=== PATIENT | female | born 1930 | race Caucasian/White ===

== ENCOUNTER 2017-12-10 11:39 | Emergency (ER) | payer MEDICARE ==
[~2017-12-10] VITALS: Ht 157.5 cm; Wt 68.0 kg
[2017-12-10] VITALS (7 sets, daily range): BP systolic 151–164; BP diastolic 66–73; PULSE 51–54; RESP 15–17; TEMP 98.4; O2SAT 87–100
[2017-12-10] MEDS ORDERED: STATIN (11:55)
[2017-12-10] MEDS ORDERED: ZOLP1SUB2 SL (11:55)
[2017-12-10] MEDS ORDERED: LEVO25TA4 PO (11:55)
[2017-12-10] MEDS ORDERED: MECL12.574 PO (11:55)
--- NOTE | 2017-12-10 11:56 | PD ---
HPI Chief Complaint: Injury Time Seen by Provider: 11:51 Travel History International Travel<30 days: No Contact w/Intl Traveler<30days: No Traveled to known affect area: No History of Present Illness HPI 87-year-old [id number] female with PMH of HTN presents to the ED via EMS for evaluation of right arm pain after trip and fall. Patient states that she fell on her outstretched hand, landing on the tile. She denies hitting her head or loss of consciousness. She endorses 10/10 pain, worse with any attempted ROM. Denies numbness or tingling of the extremity. She endorses distant history of fracture of the same arm in childhood. States her tetanus immunization is up-to-date. She takes a daily baby aspirin. She had a full breakfast around 8 AM today. Patient received 100 of fentanyl and 8 mg of morphine by EMS before arrival to the hospital. PFSH Past Medical History Anxiety: Yes Depression: Yes High Cholesterol: Yes Hypertension: Yes Thyroid Disease: Yes Tetanus Vaccination: < 5 Years Influenza Vaccination: Yes ?: Not Past Surgical History Hysterectomy: Yes Social History Alcohol Use: Yes (RARELY ) Tobacco Use: No Substance Use: No Allergies-Medications (Allergen,Severity, Reaction): Coded Allergies: penicillin G (Verified Allergy, Unknown, 12/10/17) Reported Meds & Prescriptions Reported Meds & Active Scripts Active Ibuprofen 600 Mg Tab 600 Mg PO Q6H PRN [place] (Hydrocodone-Acetaminophen) 5 Mg-325 Mg Tab 1 Tab PO Q6H PRN Reported Zolpidem (Zolpidem Tartrate) 1.75 Mg Sub 1.75 Mg SL HS PRN Meclizine (Meclizine HCl) 12.5 Mg Tab 12.5 Mg PO DIRECTED PRN Levothyroxine (Levothyroxine Sodium) 25 Mcg Tab 25 Mcg PO DAILY [Statin] Review of Systems Except as stated in HPI: all other systems reviewed are Neg Physical Exam Narrative GENERAL: Well-nourished, well-developed elderly white female no acute distress. SKIN: Focused skin assessment warm/dry. 1-2 cm laceration in the posterior aspect of the right elbow. HEAD: Normocephalic. EYES: No scleral icterus. No injection or drainage. NECK: Supple, trachea midline. No JVD or lymphadenopathy. CARDIOVASCULAR: Regular rate and rhythm without murmurs, gallops, or rubs. RESPIRATORY: Breath sounds equal bilaterally. No accessory muscle use. GASTROINTESTINAL: Abdomen soft, non-tender, nondistended. MUSCULOSKELETAL: No cyanosis, or edema. FOCUSED RIGHT UPPER EXTREMITY EXAM: 2+ radial pulse. Sensation intact to light touch distally. Visible deformity at the distal humerus and proximal radius and ulna. Exam limited secondary to pain. BACK: Nontender without obvious deformity. No CVA tenderness. Data Data Last Documented VS Vital Signs Date Time Temp Pulse Resp B/P (MAP) Pulse Ox O2 Delivery O2 Flow Rate FiO2 12/10/17 14:16 51 15 163/70 (101) 100 Nasal Cannula 2.00 12/10/17 14:01 100 12/10/17 11:46 98.4 Orders Orders Forearm (2vws) (12/10/17 11:51) Humerus (Min 2vws) (12/10/17 11:51) Electrocardiogram (12/10/17 11:51) Complete Blood Count With Diff (12/10/17 11:51) Comprehensive Metabolic Panel (12/10/17 11:51) Prothrombin Time / Inr (Pt) (12/10/17 11:51) Act Partial Throm Time (Ptt) (12/10/17 11:51) Urinalysis - C+S If Indicated (12/10/17 11:51) Type And Screen (12/10/17 11:51) Chest, Single Ap (12/10/17 11:51) Iv Access Insert/Monitor (12/10/17 11:51) Oximetry (12/10/17 11:51) Ecg Monitoring (12/10/17 11:51) Sodium Chloride 0.9% Flush (Ns Flush) (12/10/17 12:00) Ondansetron Odt (Zofran Odt) (12/10/17 12:00) Diet Npo (12/10/17 Lunch) Cefazolin 2 Gm Premix (Ancef 2 Gm Premix (12/10/17 12:00) Sodium Chlor 0.9% 1000 Ml Inj (Ns 1000 M (12/10/17 12:00) Hydromorphone Pf Inj (Dilaudid Pf Inj) (12/10/17 13:15) Hydromorphone Pf Inj (Dilaudid Pf Inj) (12/10/17 13:10) Etomidate Inj (Amidate Inj) (12/10/17 13:15) Naloxone Inj (Narcan Inj) (12/10/17 13:49) Naloxone Inj (Narcan Inj) (12/10/17 13:50) Metoclopramide Inj (Reglan Inj) (12/10/17 14:15) Elbow, Limited (Ap&Lat) (12/10/17 14:15) Fiberglass Splint Elbow Adult (12/10/17 ) Sling Cradle Arm (12/10/17 ) Urine Culture (12/10/17 14:10) Acetamin-Hydrocod 325-5 Mg ([place] 5-325 (12/10/17 16:15) Ed Discharge Order (12/10/17 16:06) Labs Laboratory Tests Test 12/10/17 11:50 12/10/17 14:10 White Blood Count 8.3 TH/MM3 Red Blood Count 5.02 MIL/MM3 Hemoglobin 13.5 GM/DL Hematocrit 40.3 % Mean Corpuscular Volume 80.4 FL Mean Corpuscular Hemoglobin 27.0 PG Mean Corpuscular Hemoglobin Concent 33.5 % Red Cell Distribution Width 12.8 % Platelet Count 207 TH/MM3 Mean Platelet Volume 8.7 FL Neutrophils (%) (Auto) 72.7 % Lymphocytes (%) (Auto) 19.2 % Monocytes (%) (Auto) 6.8 % Eosinophils (%) (Auto) 1.1 % Basophils (%) (Auto) 0.2 % Neutrophils # (Auto) 6.0 TH/MM3 Lymphocytes # (Auto) 1.6 TH/MM3 Monocytes # (Auto) 0.6 TH/MM3 Eosinophils # (Auto) 0.1 TH/MM3 Basophils # (Auto) 0.0 TH/MM3 CBC Comment DIFF FINAL Differential Comment Prothrombin Time 11.0 SEC Prothromb Time International Ratio 1.1 RATIO Activated Partial Thromboplast Time 25.0 SEC Blood Urea Nitrogen 17 MG/DL Creatinine 0.68 MG/DL Random Glucose 97 MG/DL Total Protein 6.7 GM/DL Albumin 3.8 GM/DL Calcium Level 9.2 MG/DL Alkaline Phosphatase 58 U/L Aspartate Amino Transf (AST/SGOT) 26 U/L Alanine Aminotransferase (ALT/SGPT) 25 U/L Total Bilirubin 0.6 MG/DL Sodium Level 141 MEQ/L Potassium Level 3.6 MEQ/L Chloride Level 106 MEQ/L Carbon Dioxide Level 26.8 MEQ/L Anion Gap 8 MEQ/L Estimat Glomerular Filtration Rate 82 ML/MIN Urine Color YELLOW Urine Turbidity CLEAR Urine pH 7.0 Urine Specific [place] 1.009 Urine Protein NEG mg/dL Urine Glucose (UA) NEG mg/dL Urine Ketones NEG mg/dL Urine Occult Blood NEG Urine Nitrite NEG Urine Bilirubin NEG Urine Urobilinogen LESS THAN 2.0 MG/DL Urine Leukocyte Esterase NEG Urine WBC LESS THAN 1 /hpf Urine Bacteria RARE /hpf Microscopic Urinalysis Comment CATH-CULTURE IND MDM Medical Decision Making Medical Screen Exam Complete: Yes Emergency Medical Condition: Yes Differential Diagnosis Fracture versus dislocation versus open fracture versus other Narrative Course 87-year-old female presents the ED for evaluation of right arm pain after trip and fall. Patient denies hitting her head or loss of consciousness. Patient received 100 of fentanyl and 8 mg of morphine by EMS before arrival to the hospital. Vitals reviewed. On exam patient is alert, oriented. There is visible deformity of the right elbow with palpable distal pulses and sensation intact distally. 2 subcentimeter lacerations noted on the medial aspect of the elbow. Laceration repair was performed. Please see my procedure note for details. IV was established. Patient was administered 1 L normal saline. X- rays reveal dislocation. Reduction was performed under conscious sedation. Please see my procedure note for details. Post reduction x-rays reveal near anatomical position. There is a possible radial head fracture that is nondisplaced. I spoke with Dr. Lassiter. He states that the patient can follow- up with him on the outpatient basis. Patient is provided a short course of [place] and ibuprofen, given detailed follow-up instructions. A neighbor at bedside states that she will be able to stay with the patient until her son arrives. Patient is cautioned not to take Ambien while taking narcotic pain medications. The patient and her friend indicated understanding the instructions are agreeable to care plan. The patient is stable and discharged home. Procedures Procedure Narrative LACERATION LOCATION: Medial aspect right elbow LENGTH: 0.75 cm 2 NUMBER OF STITCHES/SIOMARA: 2 REPAIR: The wound was copiously irrigated with 1 L normal saline and explored without evidence of foreign body, tendon injury or neurovascular injury. The wound was closed using surgical siomara. This was a single layer repair. A sterile dressing was applied. The patient was advised to keep the dressing clean and dry. Patient tolerated the procedure well. CLOSED REDUCTION RIGHT ELBOW: Conscious sedation was administered by Dr. Crabtree, please see her note for details. Adequate anesthesia was obtained. Axial traction was applied to the forearm with distraction proximally. Palpable clunks were heard and felt as the elbow returned to better anatomical position. ROM was carefully tested and normal. Palpable radial pulse. Posterior splint was applied by the orthotic assistant's. Upon waking the patient is able to wiggle her fingers, endorses intact sensation in the distal fingers. Cap refill less than 2 seconds. Diagnosis Primary Impression: Dislocation of elbow, right, open Qualified Codes: S53.104A - Unspecified dislocation of right ulnohumeral joint , initial encounter; S51.001A - Unspecified open wound of right elbow, initial encounter Additional Impression: Laceration Referrals: Sigifredo Lassiter MD Additional Instructions: Rest, ice, elevate the extremity. Apply ice no longer than 10-15 minutes per hour a few times a day. [place] as needed for pain greater than 6. 600 mg ibuprofen as needed for pain [address] while taking narcotic pain medications as they may cause drowsiness. Do not take Ambien while taking narcotic pain medications as they may decrease respiratory drive. Do not remove the splint for any reason. Call Dr. Lassiter, orthopedist office tomorrow for follow up appointment. Return to the ED for any urgent or emergent medical condition. Med/Other Pt SpecificInfo: Prescription(s) given Scripts Ibuprofen (Ibuprofen) 600 Mg Tab 600 MG PO Q6H Y for Pain/Inflammation, #15 TAB 0 Refills Prov: Nomi Gooden MD 12/10/17 Hydrocodone-Acetaminophen ([place]) 5 Mg-325 Mg Tab 1 TAB PO Q6H Y for PAIN, #12 TAB 0 Refills Prov: Nomi Gooden MD 12/10/17 Disposition: 01 DISCHARGE HOME Condition: Stable Anna Hernandez December 10, 2017 11:56
[2017-12-10] MEDS ORDERED: ceFAZolin 2 GM PREMIX 50 ML IV ONE (12:00)
[2017-12-10] MEDS ORDERED: ONDANSETRON ODT 4 MG TAB PO ONE (12:00)
[2017-12-10] MEDS ORDERED: SODIUM CHLORIDE 0.9% FLUSH 10 ML FLUSH IVF PRN (12:00)
[2017-12-10] MEDS: SODIUM CHLOR 0.9% 1000 ML INJ 1,000 ML IV SCH ×2 (12:10→14:08)
[2017-12-10 12:19] LABS: BASOPHIL % 0.2 % (0.0-2.0); EOSINOPHIL # 0.1 TH/MM3 (0-0.4); EOSINOPHIL % 1.1 % (0.0-4.0); HEMATOCRIT 40.3 % (35.0-46.0); HEMOGLOBIN 13.5 GM/DL (11.6-15.3); LYMPH % 19.2 % (9.0-44.0); LYMPHOCYTE # 1.6 TH/MM3 (1.0-4.8); MEAN CELL VOLUME 80.4 FL (80.0-100.0); MEAN CORPUSCULAR HGB CONC 33.5 % (32.0-36.0); MEAN PLATELET VOLUME 8.7 FL (7.0-11.0); MONO % 6.8 % (0.0-8.0); MONOCYTE # 0.6 TH/MM3 (0-0.9); NEUT % 72.7 % (16.0-70.0); PLATELET COUNT 207 TH/MM3 (150-450); RED BLOOD COUNT 5.02 MIL/MM3 (4.00-5.30); RED CELL DISTRIBUTION WIDTH 12.8 % (11.6-17.2); WHITE BLOOD COUNT 8.3 TH/MM3 (4.0-11.0)
[2017-12-10 12:27] LABS: INTERNATIONAL NORMALIZED RATIO 1.1 RATIO
[2017-12-10 12:46] LABS: ALBUMIN 3.8 GM/DL (3.4-5.0); ALT (GPT) 25 U/L (10-53); AST (GOT) 26 U/L (15-37); BICARBONATE 26.8 MEQ/L (21.0-32.0); BLOOD UREA NITROGEN 17 MG/DL (7-18); CALCIUM 9.2 MG/DL (8.5-10.1); CHLORIDE 106 MEQ/L (98-107); CREATININE 0.68 MG/DL (0.50-1.00); GLOMERULAR FILTRATION RATE 82 ML/MIN (>89); GLUCOSE,RANDOM 97 MG/DL (74-106); SODIUM (NA) 141 MEQ/L (136-145)
[2017-12-10 12:48] LABS: ALKALINE PHOSPHATASE 58 U/L (45-117); TOTAL BILIRUBIN ADULT 0.6 MG/DL (0.2-1.0); TOTAL PROTEIN 6.7 GM/DL (6.4-8.2)
--- NOTE | 2017-12-10 13:06 | RADRPT ---
EXAM DATE: 12/10/2017 1:01 PM EDT AGE/SEX: 87 years / Female INDICATIONS: Patient fell, chest pain CLINICAL DATA: This is the patient's initial encounter. Patient reports that signs and symptoms have been present for 1 day and indicates a pain score of 4/10. MEDICAL/SURGICAL HISTORY: None. None. COMPARISON: No prior [facility] exams available for comparison. FINDINGS: The heart size is mildly enlarged. The lungs are grossly clear. No effusion is seen. There appears to be a compression deformity at the right lateral aspect of L1. The age of this deformity is not known . CONCLUSION: No acute cardiopulmonary process. Electronically signed by: Saran Arias MD 12/10/2017 1:05 PM EDT
[2017-12-10] MEDS ORDERED: HYDROmorphone HCL PF 2 MG/ML VIAL ONE (13:10)
--- NOTE | 2017-12-10 13:10 | RADRPT ---
EXAM DATE: 12/10/2017 1:07 PM EDT AGE/SEX: 87 years / Female INDICATIONS: Right arm pain near elbow post fall. CLINICAL DATA: This is the patient's initial encounter. Patient reports that signs and symptoms have been present for 1 day and indicates a pain score of 10/10. MEDICAL/SURGICAL HISTORY: None. None. COMPARISON: No prior [facility] exams available for comparison. FINDINGS: There appears to be a complete posterior joint dislocation at the elbow. There is osteopenia of the b marlon structures. The mid to distal radius and ulna are intact. There is good alignment at the radial c arpal joint. There are some mild degenerative changes involving the carpal bones. CONCLUSION: Complete posterior joint dislocation at the elbow. Electronically signed by: Tray Starr MD 12/10/2017 1:09 PM EDT
[2017-12-10] MEDS ORDERED: HYDROmorphone HCL PF 1 MG/ML VIAL IV PUSH ONE (13:15)
[2017-12-10] MEDS ORDERED: ETOMIDATE 40 MG/20 ML VIAL IV PUSH ONE (13:15)
--- NOTE | 2017-12-10 13:17 | RADRPT ---
EXAM DATE: 12/10/2017 1:12 PM EDT AGE/SEX: 87 years / Female INDICATIONS: Right arm pain posterior elbow, post fall. CLINICAL DATA: This is the patient's initial encounter. Patient reports that signs and symptoms have been present for 1 day and indicates a pain score of 10/10. MEDICAL/SURGICAL HISTORY: None. None. COMPARISON: No prior [facility] exams available for comparison. FINDINGS: There is a complete posterior joint dislocation at the elbow joint. On one view there is a questionab le lucency along the head of the radius. Otherwise, the rest the bony structures are grossly intact. The humerus appears to be intact. There are some degenerative changes at the shoulder joint. CONCLUSION: 1. Complete posterior dislocation of the elbow 2. Possible linear nondisplaced fracture through the head of the radius seen only on one image. Electronically signed by: Tray Starr MD 12/10/2017 1:16 PM EDT
[2017-12-10] MEDS ORDERED: NALOXONE HCL 0.4 MG/ML AMP ONE ×2 (13:49→13:50)
--- NOTE | 2017-12-10 14:04 | PD ---
Physical Exam Date Seen by Provider: December 10, 2017 Time Seen by Provider: 13:30 Narrative I, Dr. Gooden, have reviewed the advance practice practitioner's documentation and am in agreement, met with the patient face to face, made the diagnosis, and the medical decision making was done by me. *My assessment and Findings: Patient seen and evaluated with PA, please see PA note for further details. It appears that she has a right elbow dislocation, dislocation was reduced under conscious sedation after risks and benefits were discussed with the patient. Patient also had told me that she is a DNR. The dislocation reduction was fairly uncomplicated. Patient did have temporary apnea during the procedure during conscious sedation, but bag valve mask was done over several minutes and a small dose of Narcan had been given because patient had received a large dose of opiates. Patient was observed until completely awake. Repeat x-ray after reduction shows that the reduction was successful. Patient also had lacerations in the medial elbow which were small and had been irrigated with copious saline, given Ancef and tetanus shot was updated. Case is discussed with orthopedics Dr. Lassiter Who states that patient can be released with follow-up to his office as an outpatient. Laboratory Tests Test 12/10/17 11:50 Neutrophils (%) (Auto) 72.7 % (16.0-70.0) Estimat Glomerular Filtration Rate 82 ML/MIN (>89) Last 24 hours Impressions Radius/Ulna X-Ray 12/10/17 1151 Signed Impressions: CONCLUSION: Humerus X-Ray 12/10/17 1151 Signed Impressions: CONCLUSION: Chest X-Ray 12/10/17 1151 Signed Impressions: CONCLUSION: Data Data Last Documented VS Vital Signs Date Time Temp Pulse Resp B/P (MAP) Pulse Ox O2 Delivery O2 Flow Rate FiO2 12/10/17 14:16 51 15 163/70 (101) 100 Nasal Cannula 2.00 12/10/17 14:01 100 12/10/17 11:46 98.4 Orders Orders Forearm (2vws) (12/10/17 11:51) Humerus (Min 2vws) (12/10/17 11:51) Electrocardiogram (12/10/17 11:51) Complete Blood Count With Diff (12/10/17 11:51) Comprehensive Metabolic Panel (12/10/17 11:51) Prothrombin Time / Inr (Pt) (12/10/17 11:51) Act Partial Throm Time (Ptt) (12/10/17 11:51) Urinalysis - C+S If Indicated (12/10/17 11:51) Type And Screen (12/10/17 11:51) Chest, Single Ap (12/10/17 11:51) Iv Access Insert/Monitor (12/10/17 11:51) Oximetry (12/10/17 11:51) Ecg Monitoring (12/10/17 11:51) Sodium Chloride 0.9% Flush (Ns Flush) (12/10/17 12:00) Ondansetron Odt (Zofran Odt) (12/10/17 12:00) Diet Npo (12/10/17 Lunch) Cefazolin 2 Gm Premix (Ancef 2 Gm Premix (12/10/17 12:00) Sodium Chlor 0.9% 1000 Ml Inj (Ns 1000 M (12/10/17 12:00) Hydromorphone Pf Inj (Dilaudid Pf Inj) (12/10/17 13:15) Hydromorphone Pf Inj (Dilaudid Pf Inj) (12/10/17 13:10) Etomidate Inj (Amidate Inj) (12/10/17 13:15) Naloxone Inj (Narcan Inj) (12/10/17 13:49) Naloxone Inj (Narcan Inj) (12/10/17 13:50) Metoclopramide Inj (Reglan Inj) (12/10/17 14:15) Elbow, Limited (Ap&Lat) (12/10/17 14:15) Fiberglass Splint Elbow Adult (12/10/17 ) Sling Cradle Arm (12/10/17 ) Urine Culture (12/10/17 14:10) Acetamin-Hydrocod 325-5 Mg ([place] 5-325 (12/10/17 16:15) Labs Laboratory Tests Test 12/10/17 11:50 12/10/17 14:10 White Blood Count 8.3 TH/MM3 Red Blood Count 5.02 MIL/MM3 Hemoglobin 13.5 GM/DL Hematocrit 40.3 % Mean Corpuscular Volume 80.4 FL Mean Corpuscular Hemoglobin 27.0 PG Mean Corpuscular Hemoglobin Concent 33.5 % Red Cell Distribution Width 12.8 % Platelet Count 207 TH/MM3 Mean Platelet Volume 8.7 FL Neutrophils (%) (Auto) 72.7 % Lymphocytes (%) (Auto) 19.2 % Monocytes (%) (Auto) 6.8 % Eosinophils (%) (Auto) 1.1 % Basophils (%) (Auto) 0.2 % Neutrophils # (Auto) 6.0 TH/MM3 Lymphocytes # (Auto) 1.6 TH/MM3 Monocytes # (Auto) 0.6 TH/MM3 Eosinophils # (Auto) 0.1 TH/MM3 Basophils # (Auto) 0.0 TH/MM3 CBC Comment DIFF FINAL Differential Comment Prothrombin Time 11.0 SEC Prothromb Time International Ratio 1.1 RATIO Activated Partial Thromboplast Time 25.0 SEC Blood Urea Nitrogen 17 MG/DL Creatinine 0.68 MG/DL Random Glucose 97 MG/DL Total Protein 6.7 GM/DL Albumin 3.8 GM/DL Calcium Level 9.2 MG/DL Alkaline Phosphatase 58 U/L Aspartate Amino Transf (AST/SGOT) 26 U/L Alanine Aminotransferase (ALT/SGPT) 25 U/L Total Bilirubin 0.6 MG/DL Sodium Level 141 MEQ/L Potassium Level 3.6 MEQ/L Chloride Level 106 MEQ/L Carbon Dioxide Level 26.8 MEQ/L Anion Gap 8 MEQ/L Estimat Glomerular Filtration Rate 82 ML/MIN Urine Color YELLOW Urine Turbidity CLEAR Urine pH 7.0 Urine Specific [place] 1.009 Urine Protein NEG mg/dL Urine Glucose (UA) NEG mg/dL Urine Ketones NEG mg/dL Urine Occult Blood NEG Urine Nitrite NEG Urine Bilirubin NEG Urine Urobilinogen LESS THAN 2.0 MG/DL Urine Leukocyte Esterase NEG Urine WBC LESS THAN 1 /hpf Urine Bacteria RARE /hpf Microscopic Urinalysis Comment CATH-CULTURE IND [facility] Medical Record Reviewed: Yes Supervised Visit with RADHA: Yes Procedures Procedure Narrative After the risks and benefits were discussed the following procedure was performed: MODERATE SEDATION: The patient was placed on a quality assurance monitor final and pulse oximetry. An ambu bag and suction was immediately available at bedside. The patient was monitored by the nurse. Oxygen saturation, heart rate and blood pressure were monitored. Procedural sedation was acheived using 10 mg of etomidate. Patient became apneic for several minutes, and [id number] respirations were given to help support the patient. She was given a 0.4 mg dose of Narcan for reversal of opiates given earlier, and the patient was observed until awake and alert. Procedural Sedation time in attendance was 20 minutes. Diagnosis Primary Impression: Dislocation of elbow, right, open Referrals: Sigifredo Lassiter MD Disposition: 01 DISCHARGE HOME Condition: Stable Nomi Gooden MD December 10, 2017 14:04
[2017-12-10] MEDS ORDERED: METOCLOPRAMIDE HCL 10 MG/2 ML VIAL IV PUSH ONE (14:15)
[2017-12-10 14:34] LABS: BACTERIA, URINE RARE /hpf; BILIRUBIN, URINE NEG (NEG); BLOOD, URINE NEG (NEG); GLUCOSE,URINE NEG (NEG); KETONE, URINE NEG (NEG); NITRITE,URINE NEG (NEG); URINE COLOR YELLOW (YELLW/STRAW); URINE LEUKOCYTE ESTERASE NEG (NEG)
--- NOTE | 2017-12-10 14:49 | RADRPT ---
EXAM DATE: 12/10/2017 2:46 PM EDT AGE/SEX: 87 years / Female INDICATIONS: Post reduction right elbow. CLINICAL DATA: This is the patient's subsequent encounter. Patient reports that signs and symptoms h ave been present for 1 day and indicates a pain score of 8/10. MEDICAL/SURGICAL HISTORY: . Dislocated Rt. elbow. None. COMPARISON: [facility] [place] RIGHT (2VWS), 12/10/2017. . FINDINGS: The previously noted posterior joint dislocation has been satisfactorily reduced. There is now good alignment at the elbow joint. The bony structures are grossly intact. CONCLUSION: Good position and alignment on this postreduction view. Electronically signed by: Tray Starr MD 12/10/2017 2:47 PM EDT
[2017-12-10] MEDS ORDERED: NORC5TAB PO (16:06)
[2017-12-10] MEDS ORDERED: IBUP-232 PO (16:06)
[2017-12-10] MEDS ORDERED: ACETAMINOPHEN/HYDROcodone 325 MG/5 MG TAB PO ONE (16:15)
--- NOTE | 2017-12-12 08:32 | EKG ---
Date Performed: 12/10/2017 Time Performed: 11:59:31 PTAGE: 87 years EKG: SINUS BRADYCARDIA BORDERLINE ECG NO PREVIOUS TRACING DOCTOR: Julia Ferrera Interpretating Date/Time 12/12/2017 08:20:04
== END 2017-12-10 17:45 | disposition home or self-care (01) ==
LOC: NEPE 11:39
DX: S53.104A Unspecified dislocation of right ulnohumeral joint, initial encounter (principal); S51.001A Unspecified open wound of right elbow, initial encounter; E07.9 Disorder of thyroid, unspecified; W01.0XXA Fall on same level from slipping, tripping and stumbling without subsequent striking against object, initial encounter; Z79.899 Other long term (current) drug therapy
CPT/HCPCS: 12001; 24600; 71045; 73060; 73070; 73090; 80053; 81001; 85025; 85610; 85730; 86850; 86900; 86901; 87086; 93005; 96361; 96365; 96375; 99285; J0690; J1170; J2310; J2765; J7030

== ENCOUNTER 2017-12-11 10:52 | Emergency (ER) | payer MEDICARE ==
[~2017-12-11] VITALS: Ht 157.5 cm; Wt 68.0 kg
[~2017-12-11 10:52] MED LIST: IBUP-232 PO; LEVO25TA4 PO; MECL12.574 PO; NORC5TAB PO; STATIN; ZOLP1SUB2 SL
[2017-12-11 10:59] VITALS: BP 114/54; PULSE 57; RESP 18; TEMP 98.2; O2SAT 92
--- NOTE | 2017-12-11 11:57 | PD ---
HPI Chief Complaint: Bleeding Time Seen by Provider: 11:42 Travel History International Travel<30 days: No Contact w/Intl Traveler<30days: No Traveled to known affect area: No History of Present Illness HPI Is an 87-year-old woman presents emergency from complaining of bleeding from her cath site. She had an elbow dislocation yesterday and it was reduced. It was complicated by period of apnea requiring Narcan reversal. She had a couple small lacerations that were stapled. She has had some bleeding from the wound. There is bleeding through the splint. Pains been more well controlled with the home pain medicines. She is following up with Dr. Lassiter. No other complaints. She is not on any blood thinners. History Past Medical History Narrative Medical Anxiety depression hypertension hyperlipidemia Social History Alcohol Use: Yes (RARELY ) Tobacco Use: No Allergies-Medications (Allergen,Severity, Reaction): Coded Allergies: penicillin G (Verified Allergy, Unknown, 12/10/17) Reported Meds & Prescriptions Reported Meds & Active Scripts Active Ibuprofen 600 Mg Tab 600 Mg PO Q6H PRN [place] (Hydrocodone-Acetaminophen) 5 Mg-325 Mg Tab 1 Tab PO Q6H PRN Reported Zolpidem (Zolpidem Tartrate) 1.75 Mg Sub 1.75 Mg SL HS PRN Meclizine (Meclizine HCl) 12.5 Mg Tab 12.5 Mg PO DIRECTED PRN Levothyroxine (Levothyroxine Sodium) 25 Mcg Tab 25 Mcg PO DAILY [Statin] Review of Systems Except as stated in HPI: all other systems reviewed are Neg Physical Exam Narrative GENERAL: Well-appearing 87-year-old, no acute distress per SKIN: Warm and dry. CARDIOVASCULAR: Warm and well perfused. RESPIRATORY: Normal rate and effort. MUSCULOSKELETAL: Splint was removed. The medial borders 2 siomara with an iodoform bandage on the top. There is some dried blood soaked bandage overlying that. Bleeding went through the splint. There is no active bleeding now. No trickling. No other problems. NEUROLOGICAL: Awake and alert. No gross deficits. Data Data Last Documented VS Vital Signs Date Time Temp Pulse Resp B/P (MAP) Pulse Ox O2 Delivery O2 Flow Rate FiO2 12/11/17 10:59 98.2 57 18 114/54 (74) 92 Orders Orders Morphine Inj (Morphine Inj) (12/11/17 12:00) [employer] Request For Service (12/11/17 11:48) [facility] Medical Decision Making Medical Screen Exam Complete: Yes Emergency Medical Condition: Yes Differential Diagnosis Bleeding from wound, this point, other Narrative Course Medical decision making INITIAL: Is an 87-year-old woman presents to the emergency department complaining of bleeding into her right cast/splint. Looks well. Will replace splint with a bulky absorbent dressing. Outpatient follow-up. Diagnosis Primary Impression: Bleeding Patient Instructions: General Instructions Additional Instructions: Continue splint care as previously discussed. Keep dry. Follow-up with Dr. Lassiter early next week. Return to the emergency department for any new or worsening symptoms. Med/Other Pt SpecificInfo: No Change to Meds Disposition: 01 DISCHARGE HOME Condition: Stable Mike Marmolejo MD December 11, 2017 11:57
[2017-12-11] MEDS ORDERED: MORPHINE SULFATE 4 MG/ML INJ IM ONE (12:00)
[2017-12-11 12:52] VITALS: BP 112/53; PULSE 49; RESP 16; O2SAT 97
== END 2017-12-11 13:00 | disposition home or self-care (01) ==
LOC: NEPD 10:52
DX: S41.111D Laceration without foreign body of right upper arm, subsequent encounter (principal); F41.9 Anxiety disorder, unspecified; F32.9 Major depressive disorder, single episode, unspecified; I10 Essential (primary) hypertension; E78.5 Hyperlipidemia, unspecified; Z88.0 Allergy status to penicillin; Z79.899 Other long term (current) drug therapy; X58.XXXD Exposure to other specified factors, subsequent encounter
CPT/HCPCS: 29105; 96372; 99283; J2270